=== PATIENT | male | born 1950 | race Caucasian/White ===

== ENCOUNTER 2019-04-17 04:17 | Inpatient (IN) | payer MEDICARE ==
[2019-04-17] VITALS (7 sets, daily range): BP systolic 113–152; BP diastolic 67–84; PULSE 78–111; TEMP 97.9–99
[~2019-04-17] VITALS: Ht 175.3 cm; Wt 68.1 kg
[~2019-04-17 04:17] MED LIST: ANORO IH; CATAPRES0.2 MG PO; FOLIC ACID 11 MG/TA1 PO; HYZAAR 25 MG-101 TAB PO; MULTI VITAMINS1 TAB PO; NORVASC 5MG5 MG/TAB PO; PRINIVIL2.5 MG PO; VALIUM 5MG T5 MG/TAB PO
[2019-04-17 04:59] LABS: BASO % 0.3 % (0.0-2.0); EOS % 0.2 % (0-4.0); GRAN # 12.3 (1.4-6.5); GRAN % 89.7 % (42.2-75.2); HEMOGLOBIN 11.9 g/dl (13.5-18.0); LYMPH # 0.6 (1.2-3.4); LYMPH % 4.2 % (20.0-51.0); MEAN CELL VOLUME 93 fl (80.0-100.0); MEAN CORPUSCULAR HEMOGLOBIN 33 pg (27.0-31.0); MEAN CORPUSCULAR HGB CONC 36 g/dl (33.0-37.0); MEAN PLATELET VOLUME 8.3 fl (7.4-10.4); MONO # 0.7 (0.1-0.6); PLATELET COUNT 243 K/mm3 (130-400); RED BLOOD COUNT 3.59 M/mm3 (4.20-5.60); REDCELL DISTRIBUTION WIDTH-CV 13.2 % (11.5-14.5)
[2019-04-17 05:01] LABS: HEMATOCRIT 33.2 % (42.0-52.0)
[2019-04-17 05:04] LABS: INR 0.9 (0.8-3.0); PROTHROMBIN TIME 10.9 SECONDS (9.7-12.8)
[2019-04-17 05:07] LABS: PARTIAL THROMBOPLASTIN TIME 28.8 SECONDS (26.0-37.0)
[2019-04-17 05:10] LABS: ALANINE AMINOTRANSFERASE 19 U/L (21-72); ALBUMIN 4.1 gm/dL (3.5-5.0); ALCOHOL(ethanol),MEDICAL 79 mg/dL; ALKALINE PHOSPHATASE 89 U/L (50-136); ANION GAP 16 mmol/L (7-16); AST,SGOT 36 U/L (15-37); BILIRUBIN,TOTAL 0.5 mg/dL (0.0-1.0); BLOOD UREA NITROGEN 13 mg/dL (9-20); CARBON DIOXIDE 25 mmol/L (22-30); CREATININE, serum 0.91 (0.66-1.25); GLUCOSE 95 mg/dL (74-106); LIPASE 88 U/L (23-300); MAGNESIUM 1.6 mg/dL (1.6-2.3); POTASSIUM 3.7 mmol/L (3.4-5.0); SODIUM 125 mmol/L (137-145); TOTAL PROTEIN 7.1 gm/dL (6.4-8.2)
[2019-04-17 05:16] LABS: CHLORIDE 84 mmol/L (98-107)
[2019-04-17 05:21] LABS: TROPONIN-I < 0.012 ng/mL (0.000-0.035)
--- NOTE | 2019-04-17 12:01 | NUR ---
PATIENT TRANSFERRED TO ROOM 332 AT 0920. ALERT AND OREINTED X4. HAD 1 UNMEASURED VOID. PATIENT IN BED WITH HOB ELEVATED. REPORTS MODERATE PAIN DURING MOVEMENT AND DISPLAYS OBVIOUS DISCOMFORT DURING BREATHING. PATIENT RECIEVED 1 NORCO PO. REPORTS DECREASE IN PAIN. NO FURTHER NEEDS AT THIS TIME.
[2019-04-17 13:17] LABS: MUCOUS Present /lpf; PH 6 (5-8); SQUAMOUS EPITHELIAL None Seen /hpf; URINE APPEARANCE Clear; URINE BACTERIA None Seen /hpf; URINE BILIRUBIN Negative (NEGATIVE); URINE BLOOD Negative (NEGATIVE); URINE COLOR Yellow; URINE GLUCOSE Negative (NEGATIVE); URINE KETONE Trace (NEGATIVE); URINE LEUKOCYTE ESTERASE Negative (NEGATIVE); URINE NITRATE Negative (NEGATIVE); URINE PROTEIN(semi-quant) Negative (NEGATIVE); URINE RBC 0-2 /hpf; URINE UROBILINOGEN Negative (NEGATIVE); URINE WBC None Seen /hpf
[2019-04-17 13:45] LABS: COLLECTION METHOD CLEAN CATCH
[2019-04-17 15:48] LABS: CALCIUM 8.9 mg/dL (8.4-10.2); CREATININE, serum 0.83 (0.66-1.25); POTASSIUM 4.1 mmol/L (3.4-5.0)
--- NOTE | 2019-04-17 18:23 | NUR ---
PATIENT IN BED HOB ELEVATED. ALERT AND ORIENTED X4. STATES HE HAS SOME PAIN BUT DENIES PAIN MEDS. PATIENT TRANSFERRING TO ROOM 353. PATIENT AMBULATED FROM ROOM 332 TO ROOM 353 WITH STANDBY ASSIST AND FOLLOWER WITH WHEELCHAIR. PATIENT IN BED HOB ELEVATED. OXYGEN ON VIA NASAL CANNULA. REQUESTS WATER. NO FURTHER NEEDS AT THIS TIME.
--- NOTE | 2019-04-17 23:00 | NUR ---
PT RESTING IN BED A+OX4. REPORTS NO PAIN AT THIS TIME. VSS. SCORE 0 ON DETOX AT THIS TIME. NO SOA AT THIS TIME. O2 ON VIA NC. ASSISTED TO BATHROOM- GAIT IS NOT STEADY. LUNG SOUNDS- EX WHEEZING. BOWEL SOUNDS HEARD THROUGHOUT ABD. PT AT A BM AT THIS TIME. TELE ON. HEART RRR. NO NEEDS AT THIS TIME. CALL LIGHT IN REACH
[2019-04-17 23:59] LABS: CALCIUM 9.1 mg/dL (8.4-10.2); CREATININE, serum 0.78 (0.66-1.25); POTASSIUM 3.6 mmol/L (3.4-5.0)
[2019-04-18] VITALS (13 sets, daily range): BP systolic 90–155; BP diastolic 45–89; PULSE 60–104; TEMP 97.6–100
--- NOTE | 2019-04-18 00:57 | NUR ---
FALL PRECAUTIONS IN PLACE. BED ALRM ON
--- NOTE | 2019-04-18 05:22 | NUR ---
PT HAD AN UNEVENTFUL NIGHT. REPORTED MINIMAL PAIN - PAIN ONLY WITH MOVEMENT. LAST SCORE OF DETOX SCLALE-0. ASSISTED TO BATHROOM THROUGOUT NIGHT. GAIT NOT STABLE. 1.5L VIA NC- SAT STABLE. VSS. NO NEEDS AT THSI TIME. CALL LIGHT IN REACH
--- NOTE | 2019-04-18 07:03 | NUR ---
REPORT GIVEN TO AIMEE MOLINA
[2019-04-18 07:17] LABS: BASO % 0.2 % (0.0-2.0); EOS % 0.3 % (0-4.0); GRAN # 8.2 (1.4-6.5); GRAN % 84.9 % (42.2-75.2); HEMATOCRIT 34.5 % (42.0-52.0); HEMOGLOBIN 11.9 g/dl (13.5-18.0); LYMPH # 0.5 (1.2-3.4); LYMPH % 5.3 % (20.0-51.0); MEAN CELL VOLUME 94 fl (80.0-100.0); MEAN CORPUSCULAR HEMOGLOBIN 32 pg (27.0-31.0); MEAN CORPUSCULAR HGB CONC 35 g/dl (33.0-37.0); MONO # 0.8 (0.1-0.6); MONO % 8.6 % (1.7-9.3); PLATELET COUNT 254 K/mm3 (130-400); RED BLOOD COUNT 3.67 M/mm3 (4.20-5.60); REDCELL DISTRIBUTION WIDTH-CV 13.5 % (11.5-14.5)
--- NOTE | 2019-04-18 07:46 | NUR ---
PATIENT ASSESSMENT COMPLETED. HE STILL COMPLAINS OF PAIN TO HIS RIGHT BACK HE WAS ASSISTED TO THE RESTROOM AND BACK TO BED. HE DENIES WANTING TO GET UP TO THE CHAIR. NO NEEDS AT THIS TIME
[2019-04-18 07:56] LABS: MAGNESIUM 1.5 mg/dL (1.6-2.3); PHOSPHOROUS 2.8 mg/dL (2.5-4.5)
[2019-04-18 09:24] LABS: CREATININE, serum 0.72 (0.66-1.25); POTASSIUM 3.4 mmol/L (3.4-5.0)
--- NOTE | 2019-04-18 12:41 | NUR ---
Plan: SW met with patient about DC plan. Plan is to return home with GF Zainab . Assess: Patient reports that her lives in [place] and is able to transport self but will have GF transport home. Patient reports that use of a nebulizer as the only DME he uses. PCP is Tanya Martinez in [place] and RX obtained from [facility]. Patient reports that his home phone # is the same as his GF. Patient does not believe he has an A&D problem. Declines any support services. Action: Educated patient on community resources. Suggested to follow for care needs.
--- NOTE | 2019-04-18 19:47 | NUR ---
PT HAS COURSE BREATH SOUNDS AFTER WEAK COUGH ENCOURAGED DEEP BREATHING AND COUGH WITH PILLOW TO SPLINT RIBS.
--- NOTE | 2019-04-18 22:00 | NUR ---
PT RESTING IN BED A+OX4. REPORTS MINIMAL PAIN AT THIS TIME. DENIED NEEDS FOR PAIN MEDS. VSS. PT ON 02 VIA NC. SAT STABLE. NO SOA. EDUCATION AND ENCOURAGMENT ON USING IS , COUGHING AND DEEP BREATHING. WILL CONTINUE TO ENCOURAGE THROUGOUT NIGHT. NUERO CHECKS INSIGNIFICANT. LUNGS CLEAR X4. BOWEL SOUNDS HEARD THROUGHOUT ABD. ABD SOFT. TELE ON. HEART RRR. REPORTS NO NEEDS AT THIS TIME. CALL LIGHT IN REACH.
[2019-04-19 01:35] VITALS: BP 155/95; PULSE 105; TEMP 98.7
[2019-04-19 03:35] VITALS: BP 157/78; PULSE 81; TEMP 98.9
[2019-04-19 05:56] VITALS: BP 159/83; PULSE 80; TEMP 98.5
[2019-04-19 06:53] LABS: BASO # 0.1 (0.0-0.2); BASO % 0.8 % (0.0-2.0); EOS # 0.1 (0.0-0.7); EOS % 1.1 % (0-4.0); GRAN # 6.5 (1.4-6.5); HEMATOCRIT 38.8 % (42.0-52.0); HEMOGLOBIN 13.2 g/dl (13.5-18.0); LYMPH # 1.3 (1.2-3.4); LYMPH % 14.2 % (20.0-51.0); MEAN CELL VOLUME 96 fl (80.0-100.0); MEAN CORPUSCULAR HEMOGLOBIN 33 pg (27.0-31.0); MEAN CORPUSCULAR HGB CONC 34 g/dl (33.0-37.0); MEAN PLATELET VOLUME 8.9 fl (7.4-10.4); MONO % 11.5 % (1.7-9.3); PLATELET COUNT 276 K/mm3 (130-400); RED BLOOD COUNT 4.04 M/mm3 (4.20-5.60); REDCELL DISTRIBUTION WIDTH-CV 13.7 % (11.5-14.5)
[2019-04-19 07:17] LABS: CALCIUM 9.3 mg/dL (8.4-10.2); CREATININE, serum 0.65 (0.66-1.25); POTASSIUM 3.2 mmol/L (3.4-5.0)
--- NOTE | 2019-04-19 07:30 | NUR ---
Received report from AIMEE Hudson.
--- NOTE | 2019-04-19 07:38 | NUR ---
pt had an uneventful diet, pain reported during night- pain meds given when requested. encouraged IS and deep breath and cough. pt reported understanding. iv flushes well, no redness, no swelling. IV fluids running at ordered rate. no needs at this time. call light in reach . report given to AIMEE Wilcox
[2019-04-19] MEDS ORDERED: SENNA-S 50 MG-81 TAB PO (08:34)
[2019-04-19] MEDS ORDERED: COZAAR100 MG PO (08:40)
[2019-04-19] MEDS ORDERED: NORCO 325 MG-51 TAB PO (08:43)
--- NOTE | 2019-04-19 08:56 | NUR ---
Pt awake and alert upon entry, no C/O pain at this time, expiratory wheezes noted, used incentive spirometer, shift assessments complete, left Pt call light in reach, bed in lowest position.
[2019-04-19 10:00] VITALS: BP 150/85; PULSE 96; TEMP 98
[2019-04-19 12:30] VITALS: BP 125/73; PULSE 99
--- NOTE | 2019-04-19 12:39 | NUR ---
Initial visit; Patient thanked [employer] for looking in on him and offering God's blessings.
--- NOTE | 2019-04-19 13:30 | NUR ---
Pt discharged to home, escorted to entrance, left with spouse in private auto.
== END 2019-04-19 13:30 | disposition home or self-care (01) | DRG 641 ==
LOC: COL.ER 04:17 → JCC 07:23 → MEDICAL 07:23 → JCC 09:11 → MEDICAL 18:30 → JCC 18:30 → MEDICAL 18:30
PROVIDERS: Emergency Medicine; Physician Assistant; ADMIT Hospitalist
DX: E87.1 Hypo-osmolality and hyponatremia (principal); S22.41XA Multiple fractures of ribs, right side, initial encounter for closed fracture; W01.198A Fall on same level from slipping, tripping and stumbling with subsequent striking against other object, initial encounter; J44.9 Chronic obstructive pulmonary disease, unspecified; I10 Essential (primary) hypertension; F10.20 Alcohol dependence, uncomplicated; Z87.891 Personal history of nicotine dependence; Z88.8 Allergy status to other drugs, medicaments and biological substances; Y90.3 Blood alcohol level of 60-79 mg/100 ml; D72.829 Elevated white blood cell count, unspecified
CPT/HCPCS: OP; 99222-AI; 99231-AI; 99239; A9284; J1644; J2060; J3010; J7030; Q9967